=== PATIENT | male | born 1985 | race Caucasian/White ===

== ENCOUNTER 2023-12-26 18:08 | Emergency (ER) | payer MEDICARE, MEDICAID, SELFPAY ==
[2023-12-26 18:16] VITALS: BP 113/82; PULSE 86; RESP 19; TEMP 36.3; O2SAT 99
--- NOTE | 2023-12-26 18:18 | ED.WOUNDLAC ---
HPI - Wound/Laceration General Chief Complaint: Wound/Laceration Stated Complaint: L wrist laceration/box icer Time Seen by Provider: 12/26/23 18:15 Source: patient Mode of arrival: ambulatory Limitations: no limitations History of Present Illness HPI narrative: Patient is a 37-year-old male with a left wrist laceration after accident with a box icer. Patient was working on his car and slit his left wrist accidentally. EMS was called to the area but patient refused transport. Onset (ago): hour(s) (4) Extremity Location: Left: wrist ( Flexor surface) Place: outdoors Patient tetanus UTD: No Context: accidental Associated symptoms: none Related Data Allergies Allergy/AdvReac Type Severity Reaction Status Date / Time No Known Allergies Allergy Unverified 03/11/14 23:34 Review of Systems Review of Systems: All systems reviewed & are unremarkable except as noted in HPI and below Constitutional: Constitutional: Reports no additional constitutional complaints Eyes: Eyes: Reports no additional eye complaints ENT: Reports system reviewed and no additional complaints, except as documented Cardiovascular: Cardiovascular: Reports no additional cardiovascular complaints Respiratory: Respiratory: Reports no additional respiratory complaints Gastrointestinal: Gastrointestinal: Reports no additional gastrointestinal complaints Genitourinary: Genitourinary: Reports no additional male genitourinary complaints Musculoskeletal: Musculoskeletal: Reports no additional musculoskeletal complaints Integumentary/Breasts: Skin/Breast: Reports system reviewed and no additional complaints, except as docu Neurologic: Reports system reviewed and no additional complaints, except as documented Psychiatric: Psychiatric: Reports no additional psychiatric complaints Endocrine: Endocrine: Reports no additional endocrine complaints Hematologic/Lymphatic: Hematologic/Lymphatic: Reports no additional hematologic/lymphatic complaints Allergic/Immunologic: Allergic/Immunologic: Reports no additional allergic/immunologic complaints Exam Const: General: healthy appearing Nutritional Appearance: well nourished Orientation/consciousness: patient oriented x3 HENMT: Head: normal to inspection Ears: external ears normal Face/Nose/Sinus: Normal external nose present Eyes: Conjunctivae: conjunctivae normal Pupils: Equal, round and reactive pupils present EOM: EOMs intact bilaterally Neck: Neck: normal visual inspection Chest: Chest palpation & inspection: normal inspection of the chest Resp: Effort & Inspection: normal respiratory effort and not labored Auscultation: clear to auscultation bilaterally Cardio: Rate: regular rate Rhythm: regular rhythm Heart sounds: no murmurs GI: Inspection: non-distended GI Palp: Yes Soft to palpation and No Tenderness to palpation present (GI) Auscultation: normal bowel sounds Back/Spine/Pelvis: Back: no CVA tenderness Skin: General skin exam: normal color Rashes: no rashes Wounds: wound noted and wounds noted Other: Left wrist flexor surface has a linear 6 cm deep laceration with tendon noted intact below the laceration; minimal bleeding; patient able to move all digits and distally neurovascularly intact Neuro: General: patient oriented x3 Cranial nerves: Yes Nystagmus not present Speech: normal speech Extrem: General: normal to inspection Other: left hand is able to move without difficulty and moves all digits and wrist without difficulty; tendon was seen on open examination however it was intact without laceration Psych: Mental Status: mental status grossly normal Affect: normal affect Attitude: cooperative Course Vital Signs Vital signs: Vital Signs Temperature 36.3 C L 12/26/23 18:16 Pulse Rate 86 12/26/23 18:16 Respiratory Rate 19 12/26/23 18:16 Blood Pressure 113/82 12/26/23 18:16 Pulse Oximetry 99 12/26/23 18:16 Oxygen Delivery Room Air 12/01
[2023-12-26] MEDS: TETANUS,DIPHTHERIA,AC PERTUSSIS ADULT 0.5 ML (ADACEL) IM (18:41)
[2023-12-26] MEDS: LIDOCAINE HCL 1% LOCAL INJ 10 ML VIAL INFILTRATE (18:42)
[2023-12-26] MEDS: NEOMYCIN/POLYMYXIN/BACITRACIN OINTMENT PACKET 1 PACKET TOPICAL (19:29)
[2023-12-26 19:33] VITALS: BP 168/87; PULSE 86; RESP 20; TEMP 36.7; O2SAT 98
== END 2023-12-26 19:33 | disposition home or self-care (01) ==
PROVIDERS: Emergency Provider Emergency Medicine
DX: S61.512A Laceration without foreign body of left wrist, initial encounter (principal); W26.8XXA Contact with other sharp object(s), not elsewhere classified, initial encounter; Z23 Encounter for immunization
CPT/HCPCS: 12002; 90471; 90715; 99282

== ENCOUNTER 2024-01-02 16:25 | Emergency (ER) | payer MEDICARE, MEDICAID, SELFPAY ==
[2024-01-02 16:30] VITALS: BP 118/84; PULSE 78; RESP 18; TEMP 36.3; O2SAT 98
--- NOTE | 2024-01-02 16:38 | PC.NURSE ---
ER Provider at the bedside
--- NOTE | 2024-01-02 16:42 | ED.WOUNDLAC ---
HPI - Wound/Laceration General Chief Complaint: Wound/Laceration Stated Complaint: suture removal Time Seen by Provider: 01/02/24 16:41 Source: patient Mode of arrival: ambulatory Limitations: no limitations History of Present Illness HPI narrative: patient is a 38-year-old male with a left wrist laceration sutured by me a week ago. He is here for suture removal. No complications or problems. Onset (ago): day(s) (7) Location: other ( Left wrist; accident with Sharp blade 1 week ago) Extremity Location: Left: wrist ( flexor surface) Place: outdoors ( working on his car) Patient tetanus UTD: Yes Context: accidental Associated symptoms: none Treatments prior to arrival: other ( sutures and Dermabond) Related Data Home Medications Medication Instructions Recorded Confirmed divalproex 250 mg tablet,extended 250 mg PO DAILY 01/02/24 01/02/24 release 24 hr (Depakote ER) divalproex 500 mg tablet,extended 500 mg PO DAILY 01/02/24 01/02/24 release 24 hr (Depakote ER) gabapentin 300 mg capsule 300 mg PO DAILY 01/02/24 01/02/24 interferon beta-1a (albumin) 44 44 mcg subcut WEEKLY 01/02/24 01/02/24 mcg/0.5 mL subcutaneous pen injector (Rebif Rebidose) levetiracetam 500 mg tablet 500 mg PO DAILY 01/02/24 01/02/24 mirtazapine 15 mg tablet 15 mg PO DAILY 01/02/24 01/02/24 Allergies Allergy/AdvReac Type Severity Reaction Status Date / Time No Known Allergies Allergy Unverified 03/11/14 23:34 Review of Systems Review of Systems: All systems reviewed & are unremarkable except as noted in HPI and below Constitutional: Constitutional: Reports no additional constitutional complaints Eyes: Eyes: Reports no additional eye complaints ENT: Reports system reviewed and no additional complaints, except as documented Cardiovascular: Cardiovascular: Reports no additional cardiovascular complaints Respiratory: Respiratory: Reports no additional respiratory complaints Gastrointestinal: Gastrointestinal: Reports no additional gastrointestinal complaints Genitourinary: Genitourinary: Reports no additional male genitourinary complaints Musculoskeletal: Musculoskeletal: Reports no additional musculoskeletal complaints Integumentary/Breasts: Skin/Breast: Reports system reviewed and no additional complaints, except as docu Neurologic: Reports system reviewed and no additional complaints, except as documented Psychiatric: Psychiatric: Reports no additional psychiatric complaints Endocrine: Endocrine: Reports no additional endocrine complaints Hematologic/Lymphatic: Hematologic/Lymphatic: Reports no additional hematologic/lymphatic complaints Allergic/Immunologic: Allergic/Immunologic: Reports no additional allergic/immunologic complaints Exam Const: General: healthy appearing Nutritional Appearance: well nourished Orientation/consciousness: patient oriented x3 HENMT: Head: normal to inspection Ears: external ears normal Face/Nose/Sinus: Normal external nose present Eyes: Conjunctivae: conjunctivae normal Pupils: Equal, round and reactive pupils present EOM: EOMs intact bilaterally Neck: Neck: normal visual inspection Chest: Chest palpation & inspection: normal inspection of the chest Resp: Effort & Inspection: normal respiratory effort and not labored Auscultation: clear to auscultation bilaterally Cardio: Rate: regular rate Rhythm: regular rhythm Heart sounds: no murmurs GI: Inspection: non-distended GI Palp: Yes Soft to palpation and No Tenderness to palpation present (GI) Auscultation: normal bowel sounds Back/Spine/Pelvis: Back: no CVA tenderness Skin: General skin exam: normal color Rashes: no rashes Wounds: wound noted and wounds noted Other: left wrist flexor surface has an intact running suture with Dermabond on the distal tip; it has been 1 week and no complications seen or cellulitis or oozing or bleeding; it appears the underneath tissue was closed well and just some topical superficial
== END 2024-01-02 16:54 | disposition home or self-care (01) ==
PROVIDERS: Emergency Provider Emergency Medicine
DX: Z48.02 Encounter for removal of sutures (principal); S61.512D Laceration without foreign body of left wrist, subsequent encounter; W26.8XXD Contact with other sharp object(s), not elsewhere classified, subsequent encounter
CPT/HCPCS: 15853; 99281

== ENCOUNTER 2024-03-17 22:41 | Emergency (ER) | payer MEDICARE, MEDICAID, SELFPAY ==
[2024-03-17 22:45] VITALS: BP 134/94; PULSE 75; RESP 18; TEMP 36.6; O2SAT 100
--- NOTE | 2024-03-17 23:32 | ED.EXTPRO ---
HPI - Extremity Problem General Chief complaint: Extremity Problem,Nontraumatic Stated complaint: upper extremity problem Source: patient Mode of arrival: ambulatory Limitations: no limitations History of Present Illness HPI Narrative: 38-year-old male with a history of multiple sclerosis, seizure disorder presented to the ED on 12/26/2023 for a left wrist laceration which was repaired. Subsequently the patient had -- left wrist pain over the laceration site. -- No motor deficit of left hand. He has decreased sensation over the ulnar aspect. His multiple sclerosis has been stable. It was diagnosed 10 years ago with eye symptoms. Currently the patient does not have any motor deficits. His disease has been stable with interferon beta MD Complaint: extremity pain Onset (ago): day(s) Pain Consistency: constant Location: left and other ( wrist) Quality: aching Radiation: none Relieving factors: nothing Exacerbating factors: nothing Associated symptoms: denies other symptoms Related Data Home Medications Medication Instructions Recorded Confirmed divalproex 250 mg tablet,extended 250 mg PO DAILY 01/02/24 03/17/24 release 24 hr (Depakote ER) divalproex 500 mg tablet,extended 500 mg PO DAILY 01/02/24 03/17/24 release 24 hr (Depakote ER) gabapentin 300 mg capsule 300 mg PO TID 01/02/24 03/17/24 interferon beta-1a (albumin) 44 44 mcg subcut WEEKLY 01/02/24 03/17/24 mcg/0.5 mL subcutaneous pen injector (Rebif Rebidose) levetiracetam 500 mg tablet 500 mg PO DAILY 01/02/24 03/17/24 (Keppra) mirtazapine 15 mg tablet (Remeron) 15 mg PO DAILY 01/02/24 03/17/24 Allergies Allergy/AdvReac Type Severity Reaction Status Date / Time blue dye Allergy Unknown Verified 03/17/24 23:36 Review of Systems Review of Systems: All systems reviewed & are unremarkable except as noted in HPI and below Constitutional: Constitutional: Reports as per HPI and Reports no additional constitutional complaints Eyes: Eyes: Reports as per HPI and Reports no additional eye complaints ENT: Reports system reviewed and no additional complaints, except as documented and Reports as per HPI Cardiovascular: Cardiovascular: Reports as per HPI and Reports no additional cardiovascular complaints Respiratory: Respiratory: Reports as per HPI and Reports no additional respiratory complaints Gastrointestinal: Gastrointestinal: Reports as per HPI and Reports no additional gastrointestinal complaints Genitourinary: Genitourinary: Reports no additional male genitourinary complaints Musculoskeletal: Musculoskeletal: Reports no additional musculoskeletal complaints Comments: left wrist pain over the scar. Normal range of motion of the wrist. Decreased sensation over the ulnar aspect of the left hand. Integumentary/Breasts: Skin/Breast: Reports system reviewed and no additional complaints, except as docu Comments: Healed scar over the left Neurologic: Reports system reviewed and no additional complaints, except as documented and Reports as per HPI Comments: decreased sensation over medial 2 fingers of the left hand Psychiatric: Psychiatric: Reports no additional psychiatric complaints and Reports as per HPI Endocrine: Endocrine: Reports no additional endocrine complaints and Reports as per HPI Hematologic/Lymphatic: Hematologic/Lymphatic: Reports no additional hematologic/lymphatic complaints and Reports as per HPI Allergic/Immunologic: Allergic/Immunologic: Reports no additional allergic/immunologic complaints and Reports as per HPI PMFSH Past Medical History Medical History (Updated 03/17/24 @ 23:55 by Edgar Kent MD) Bipolar 1 disorder Multiple sclerosis Seizure disorder Social History Social History (Updated 03/17/24 @ 23:53 by Edgar Kent MD) Social History: uses marijuana Exam Narrative: blood pressure 134/94 Const: General: no acute distress Orientation/consciousness: vianca
[2024-03-18] MEDS: KETOROLAC 30 MG/ML VIAL (*BKC) IM (00:04)
== END 2024-03-18 00:25 | disposition home or self-care (01) ==
PROVIDERS: Emergency Provider Internal Medicine Critical Care Medicine
DX: S61.512D Laceration without foreign body of left wrist, subsequent encounter (principal); X58.XXXD Exposure to other specified factors, subsequent encounter
CPT/HCPCS: 29125; 96372; 99283; J1885

== ENCOUNTER 2024-09-29 22:42 | Emergency (ER) | payer MEDICARE, MEDICAID, SELFPAY ==
--- NOTE | ~2024-09-29 | CT_ITS ---
EXAMINATION: CT brain wo con DATE: 09/29/2024 23:58 INDICATION: seizure . TECHNIQUE: Computed tomography (CT) of the head was performed without intravenous contrast. The mA wa s adjusted according to patient size. Iterative reconstruction technique was employed. The dose-lengt h product was 756.67 mGy-cm. COMPARISON: 07/07/2014; MR brain 03/11/2014. FINDINGS: No acute intracranial hemorrhage or extra-axial fluid collection. No hydrocephalus, mass, or herniation. No acute ischemic infarct. Unremarkable dural venous sinus attenuation. No acute osseous abnormality. Moderate left maxillary mucosal thickening, minimal right maxillary mucosal thickening, right mastoid fluid, the remaining aerated spaces are clear. Mild chronic white matter change. IMPRESSION: No acute intracranial process. Reviewed, dictated and finalized at location K. ERED SUGAR SUPERVISOR
--- NOTE | ~2024-09-29 | XR_ITS ---
EXAM: XR hand RT 2V DATE: 09/29/2024 23:59 HISTORY: injury . COMPARISON: 11/24/2014. FINDINGS: Normal mineralization. Short fourth and fifth metacarpals. Comminuted fracture at the base of the fifth metacarpal with 35 degrees anterior angulation. Stable appearing minimal anterior angul ation of the distal aspect of the fifth metacarpal. Likely acute fracture of the distal fourth metaca rpal with 49 degrees anterior angulation. No lytic or blastic lesion. Joint spaces are maintained. No erosion or periosteal change. Soft tissues within normal limits. IMPRESSION: Comminuted, anteriorly angulated right fifth metacarpal base fracture. Anteriorly angulat ed fracture of the distal fourth metacarpal. Reviewed, dictated and finalized at location K. [facility] EDUCATOR IMPRESSION: Comminuted, anteriorly angulated right fifth metacarpal base fractu re. Anteriorly angulated fracture of the distal fourth metacarpal.
--- NOTE | 2024-09-29 22:45 | ECG_ITS ---
Test Date: 2024-09-29 22:53:44 Measurements Intervals [place] Rate: 62 P: 32 [place]: 138 QRS: 29 QRSD: 100 T: 55 QT: 412 QTc: 420 Interpretive Statements SINUS RHYTHM No previous ECG available for comparison Electronically Signed On 09-30-2024 11:39:18 ASSISTANT SECRETARY by Nhan Campos M.D.
[2024-09-29 22:47] VITALS: BP 157/72; PULSE 66; RESP 16; TEMP 36.3; O2SAT 100
[2024-09-29 22:54] VITALS: O2SAT 100
[2024-09-29 23:05] LABS: Basophils Percent Auto 0.3 % (0.2-1.2); Eosinophils Absolute Auto 0.1 K/mm3 (0-0.3); Hematocrit 40.8 % (42.0-52.0); Hemoglobin 13.9 g/dL (14.0-18.0); Immature Granulocyte Absolute 0.01 K/mm3 (0.00-0.031); Immature Granulocyte Percent A 0.1 % (0-0.5); Lymphocytes Absolute Auto 3.17 K/mm3 (0.9-3.2); Lymphocytes Percent Auto 45.7 % (18.3-44.2); Mean Corpuscular HGB Conc 34.1 g/dl (32-36); Mean Corpuscular Hemoglobin 31.4 pg (26-34); Mean Corpuscular Volume 92.3 fl (80-100); Monocytes Absolute Auto 0.8 K/mm3 (0.1-0.6); Monocytes Percent Auto 11.5 % (2.6-8.5); Neutrophils Absolute Auto 2.9 K/mm3 (1.3-6.7); Neutrophils Percent Auto 41.4 % (45.5-73.1); Platelet Count Result 217 k/mm3 (150-375); Red Blood Count 4.42 M/mm3 (4.6-6.20); Red Cell Distribution Width 12.5 % (11.5-14.5); White Blood Count 6.9 K/mm3 (4.5-10.0)
[2024-09-29 23:12] VITALS: BP 118/76; PULSE 61; RESP 20; O2SAT 100
[2024-09-29 23:16] VITALS: BP 119/72; PULSE 65; RESP 25; O2SAT 100
[2024-09-29 23:16] LABS: Alanine Aminotransferase 17 U/L (6-50); Albumin Level 4.4 g/dL (3.5-5.1); Alkaline Phosphatase 90 U/L (38-126); Anion Gap 13 mmol/L (4-12); Aspartate Amino Transferase 29 U/L (17-59); Blood Urea Nitrogen 14 mg/dL (9-20); Calcium 9.7 mg/dL (8.4-10.2); Carbon Dioxide 23 mmol/L (22-30); Chloride 105 mmol/L (98-107); Estimated CRCL calculation 155 ml/min; Estimated Glomerular Filt Rate > 60; Glucose 109 mg/dL (65-110); Potassium 3.5 mmol/L (3.4-5.0); Sodium 141 mmol/L (137-145)
[2024-09-29 23:17] LABS: Prothrombin Time 13.1 Seconds (11.1-14.7)
[2024-09-29 23:18] LABS: Add Urine Microscopic? NO; Appearance Urine Clear (Clear); Bilirubin Urine Negative (Negative); Blood Urine Negative (Negative); Color Urine Yellow (Yellow); Glucose Urine UA Negative (Negative); Ketones Urine Negative (Negative); Leukocyte Esterase Ur Negative LEU/UL (Negative); Nitrate Urine Negative (Negative); Protein Urine Negative (Negative); Specific Grav Ur 1.005 (1.001-1.035)
[2024-09-29 23:18] LABS: Partial Thromboplastin Time 31.6 Seconds (22.3-36.8)
--- NOTE | 2024-09-29 23:22 | ED_ITS ---
HPI - Altered Mental Status General Chief Complaint: Altered Mental Status Stated Complaint: seizure Time Seen by Provider: 09/29/24 23:11 Source: patient and family Mode of arrival: ambulatory Limitations: no limitations History of Present Illness HPI narrative: This is a 38-year-old male who presents to the ED for chief complaint of possible seizure-like activity occurring just prior to arrival. Brother states patient has history of epilepsy and takes multiple medications for this. Reports that he received a call today from the patient is and it seemed like patient was yelling and having a seizure. He then went over to the house states that the patient seemed to be coming out of the seizure when he got there. States that he had been responding on the phone. His brother believes that the patient is currently postictal. He feels that he is very disoriented as the patient believes his mother who has at home currently. Father and brother a bedside and do not feel the patient has been ill lately. They have not seen a seizure like this before. They are estimating seizure time of 5-10 minutes. Patient is able to tell me that he has pain to his wrist. He denies any other drug use besides marijuana use. States that he has been taking his medications as prescribed, however history is quite limited due to postictal state Related Data Home Medications ?Medication ?Instructions ?Recorded ?Confirmed ?Last Taken ?Type divalproex 250 mg tablet,extended 250 mg PO DAILY 01/02/24 03/17/24 Unknown History release 24 hr (Depakote ER) divalproex 500 mg tablet,extended 500 mg PO DAILY 01/02/24 03/17/24 Unknown History release 24 hr (Depakote ER) gabapentin 300 mg capsule 300 mg PO TID 01/02/24 03/17/24 Unknown History interferon beta-1a (albumin) 44 44 mcg subcut WEEKLY 01/02/24 03/17/24 Unknown History mcg/0.5 mL subcutaneous pen injector (Rebsurendra [place]ose) levetiracetam 500 mg tablet 500 mg PO DAILY 01/02/24 03/17/24 Unknown History (Keppra) mirtazapine 15 mg tablet (Remeron) 15 mg PO DAILY 01/02/24 03/17/24 Unknown History Allergies Allergy/AdvReac Type Severity Reaction Status Date / Time blue dye Allergy Unknown Verified 09/29/24 22:44 Review of Systems 2 Review of Systems: All systems as dictated in [facility] Past Medical History Medical History (Updated 09/30/24 @ 01:00 by Enrique Tam PA-C) Bipolar 1 disorder Seizure disorder Multiple sclerosis Social History Social History (Updated 03/17/24 @ 23:53 by Edgar Kent MD) Social History: uses marijuana Exam 2 Narrative: GENERAL: Appears fatigued, postictal. HEAD: Normocephalic, atraumatic. EYES: PERRLA and EOMI. ENT: Nares clear, no rhinorrhea or epistaxis. Mucous membranes moist. Oropharynx without tonsillar hypertrophy exudate or other lesions. NECK: Supple. No adenopathy or masses. CHEST: No respiratory distress. Clear to auscultation. No wheezes rales or rhonchi HEART: Regular rate and rhythm. No murmur heard. Normal peripheral pulses. ABDOMEN: Soft, nontender, nondistended, normal active bowel sounds. MSK: Normal range of motion. No edema. SKIN: Warm, dry, no rash. NEURO: Alert and oriented to self only. He is not alert to time or place. News Producer strength equal bilaterally. No nuchal rigidity. Moves all 4 extremities spontaneously PSYCH: Normal mood and affect. Course Reevaluation(s) Reevaluation #1: Patient is now fully alert and oriented. He is sitting up in the bed. He is conversational and coherent. Fully oriented. Date: 09/30/24 Time: 00:57 Vital Signs Vital signs: Vital Signs Temperature 97.3 F L 09/29/24 22:47 Pulse Rate 66 09/29/24 22:47 Respiratory Rate 16 09/29/24 22:47 Blood Pressure 157/72 H 09/29/24 22:47 Pulse Oximetry 100 09/29/24 22:47 Oxygen Delivery Room Air 09/29/24 22:47 Temperature 97.3 F L 09/29/24 22:47 Pulse Rate 61 09/30/24 00:46 Respiratory Rate 15 09/30/24 00:46 Blood Pressure 101/67 09/30/24 00:46 Pulse Oximetry 95 09/30/24 00:46 Oxygen Delivery Room Air 09/29/24 22:54 MDM - Altered Mental Status MDM Narrative Medical decision making narrative: This is a 38-year-old male who presents to the ED for chief complaint of seizure activity prior to arrival. Vitals are normal. Exam shows patient is likely postictal. Lab work is unremarkable overall. CT brain is negative for acute findings. Urinalysis negative. Urine drug screen positive only for cannabis. Right hand x-ray: IMPRESSION: Comminuted, anteriorly angulated right fifth metacarpal base fracture. Anteriorly angulated fracture of the distal fourth metacarpal. Presentation consistent with breakthrough seizure. He also has a boxer's fracture of the right hand. He was given loading dose of Keppra here. After short observation, patient is fully back to his normal baseline. Family is bedside and confirms that he is acting normally. Patient was placed in ulnar gutter splint and given short course for [place] for pain control for the fracture. He sugars that he has all of his needed medications at home. He states that while he was admitted to psychiatry unit at [facility] recently they did not have his seizure medication regimen correct. He assures that he will follow-up with his neurologist and his psychiatrist as scheduled. Patient will be discharged in stable condition. Supportive measures discussed and return precautions given. Patient is understanding and agreeable with plan for discharge with PCP follow-up. Lab Data 09/29/24 22:54 09/29/24 22:54 Labs: Lab Results 09/29/24 09/29/24 Range/Units 22:54 23:10 WBC 6.9 (4.5-10.0) K/mm3 RBC 4.42 L (4.6-6.20) M/mm3 Hgb 13.9 L (14.0-18.0) g/dL Hct 40.8 L (42.0-52.0) % MCV 92.3 (80-100) fl MCH 31.4 (26-34) pg MCHC 34.1 (32-36) g/dl RDW 12.5 (11.5-14.5) % Plt Count 217 (150-375) k/mm3 MPV 12.0 H (7.4-10.4) fl Immature Gran % (Auto) 0.1 (0-0.5) % Neut % (Auto) 41.4 L (45.5-73.1) % Lymph % (Auto) 45.7 H (18.3-44.2) % Ray % (Auto) 11.5 H (2.6-8.5) % Eos % (Auto) 1.0 (0-4.4) % Baso % (Auto) 0.3 (0.2-1.2) % Lymph # (Auto) 3.17 (0.9-3.2) K/mm3 Ray # (Auto) 0.8 H (0.1-0.6) K/mm3 Eos # (Auto) 0.1 (0-0.3) K/mm3 Baso # (Auto) 0.0 (0.0-0.1) K/mm3 Abs Immat Gran (auto) 0.01 (0.00-0.031) K/mm3 Absolute Neuts (auto) 2.9 (1.3-6.7) K/mm3 Absolute Nucleated RBC 0.000 (0.0-0.012) K/mm3 Nucleated RBC % 0.0 (0.0-0.2) % PT 13.1 (11.1-14.7) Seconds INR 1.0 APTT 31.6 (22.3-36.8) Seconds Sodium 141 (137-145) mmol/L Potassium 3.5 (3.4-5.0) mmol/L Chloride 105 (98-107) mmol/L Carbon Dioxide 23 (22-30) mmol/L Anion Gap 13 H (4-12) mmol/L BUN 14 (9-20) mg/dL Creatinine 0.78 (0.7-1.3) mg/dL Estim Creat Clear Calc 155 ml/min Estimated GFR > 60 (59 - ) Glucose 109 (65-110) mg/dL Calcium 9.7 (8.4-10.2) mg/dL Total Bilirubin 1.0 (0.2-1.3) mg/dL AST 29 (17-59) U/L ALT 17 (6-50) U/L Alkaline Phosphatase 90 (38-126) U/L Total Protein 8.0 (6.3-8.2) g/dL Albumin 4.4 (3.5-5.1) g/dL Urine Color Yellow (Yellow) Urine Appearance Clear (Clear) Urine pH 7.0 (5.0-9.0) Ur Specific [place] 1.005 (1.001-1.035) Urine Protein Negative (Negative) mg/dL Urine Glucose (UA) Negative (Negative) mg/dL Urine Ketones Negative (Negative) mg/dL Ur Blood (Man) Negative (Negative) Urine Nitrate Negative (Negative) Urine Bilirubin Negative (Negative) Urine Urobilinogen 1.0 (<2.0) mg/dL Leukocyte Esterase Rfl Negative (Negative) ROMAN/UL Urine Opiates Screen Negative (Negative) Urine Methadone Screen Negative (Negative) Ur Barbiturates Screen Negative (Negative) Ur Phencyclidine Scrn Negative (Negative) Ur Amphetamine Screen Negative (Negative) U Benzodiazepines Scrn Negative (Negative) Urine Cocaine Screen Negative (Negative) U Cannabinoids Screen Positive A (Negative) Discharge Plan Discharge Clinical Impression: Seizure-like activity Patient Disposition: Home, Self-Care Condition: Stable Instructions: Antibiotic Form Additional Instructions: Your exam and imaging today are reassuring, however this was probably a breakthrough seizure. Please make sure that you are taking her medications as prescribed at home and follow-up closely with neurologist and psychiatrist. Use short course of [place] as needed for pain control. Follow-up with hand surgeon for the hand fractures. If you have any new or worsening symptoms please return to the ER for further evaluation. Patient Language: Turkmen Prescriptions: New hydrocodone-acetaminophen 5-325 mg tablet 1 tablet PO Q8H PRN (Reason: pain) Qty: 12 0RF No Action levetiracetam [Keppra] 500 mg tablet 500 mg PO DAILY divalproex [Depakote ER] 500 mg tablet extended release 24 hr 500 mg PO DAILY gabapentin 300 mg capsule 300 mg PO TID mirtazapine [Remeron] 15 mg tablet 15 mg PO DAILY divalproex [Depakote ER] 250 mg tablet extended release 24 hr 250 mg PO DAILY Rebif Rebidose 44 mcg/0.5 mL pen injector 44 mcg SUBCUT WEEKLY Follow-up/Referrals: Gladys Ortiz MD [Physician] - UNKNOWN,DOCTOR [Primary Care Provider] - Time of Disposition: 01:00
[2024-09-29 23:31] VITALS: BP 120/71; PULSE 64; RESP 13; O2SAT 97
--- OUTSIDE RECORDS SUMMARY | 2024-09-29 23:34 | XMS_ITS | Clinical Summary ---
Author Organization [facility] Address [address] [place] [address]. 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 Gender Identity Not on file Sexual Orientation Not on file Plan of Treatment Health Maintenance Due Date Last Done Comments Annual Physical 12/27/1987 Hepatitis C 2002 DTaP, Tdap and Td Vaccines ( 1 - Tdap) 12/27/2003 Hepatitis B Vaccines (1 of 3 - 19+ 3-dose series) 12/27/2003 COVID-19 Vaccine (2023-2 5 season) 2024 Influenza Adult (#1) 2024 HPV Vaccines Aged Out No longer eligi ble based on patient's age to complete this topic Meningococcal B Vaccine Aged Out No l onger eligible based on patient's age to complete this topic Meningococcal Vaccine Aged Out No chloe biju eligible based on patient's age to complete this topic Pneumococcal Vaccine: Pediat rics (0 to 5 Years) and At-Risk Patients (6 to 64 Years) Aged Out No longer eligible b ased on patient's age to complete this topic RSV Immunizations Under 20 Months Aged Out No longer eligible based on patient's age to complete this topic
--- OUTSIDE RECORDS SUMMARY | 2024-09-29 23:34 | XMS_ITS | Referral Summary ---
Author Organization [facility] Address [address] [place] [address] Care Team Providers Care Supervisor Taping Name Role Phone Unavailable Primary Care Provider Unavailabl e Source Comments [facility],non-owned Affiliates and Associated Physician Practices is amultiple site organization consisting of ambulatory clinics and hospital sitesin [place], [place], [place] and [place]. This disclosure is being madepursuant to the Care Everywhere program and may not contain all information available regarding this patient. Last updated 18.[facility] [email or web address] Allergies No known active allergies Medications * Be aware that medications may not be up to date on this document. Alwaysverify current medications with the patient. Medication Sig Dispensed Refills Start Date End Date Status levETIRAcetam (KEPPRA) 1000 MG tabletIndications: Bipolar Mood Disorder,Tonic Clonic Epilepsy Take 1,000 mg by mouth at bedtime Reasons: Manic-Depression, Tonic-Clonic Seizures Active gabapentin (NEURONTIN) 600 MG tabletIndications: Multiple Sclerosis,Neurogen ic Pain (Inactive) Take 600 mg by mouth 3 times daily Reasons: Multiple Sclerosis, Neurogenic Pain Active REBIF REBIDOSE 44 MCG/0.5ML auto-injectorIndic ations:Multiple Sclerosis,Due at 3 pm daily Inject 44 mcg subcutaneously every Friday, Friday & Friday Reasons: Multiple Sclerosis, Due at 3 pm daily 10/02/2016 Active divalproex ER 24hr (DEPAKOTE ER) 500 MG tabletIndications: Manic Phase of Bipolar Mood Disorder Take 2 Tabs by mouth at bedtime Reasons: Manic Phase of Manic-Depression 60 Tab 10/04/2016 Active divalproex ER 24hr (DEPAKOTE ER) 500 MG tabletIndications: Manic Phase of Bipolar Mood Disorder Take 1 Tab by mouth once daily Reasons: Manic Phase of Manic-Depression 30 Tab 10/05/2016 Active mirtazapine (REMERON) 15 MG tabletIndications: Insomnia,Major Depressive Disorder Take 1 Tab by mouth at bedtime Reasons: Trouble Sleeping, Major Depressive Disorder 30 Tab 1 10/04/2016 Active nicotine (NICODERM CQ) 21 MG/24HR patchIndications:N icotine Dependence Apply 1 Patch to skin once daily Remove old patch before applying new patch. Reasons: Nicotine Addiction 10 Patch 1 10/04/2016 Active Active Problems No known active problems Social History Tobacco Use Types Packs/Day Years Used Date Smoking Tobacco: Every Day Cigarettes 1 32 Started: 09/30/1992 Smokeless Tobacco: Never Tobacco Cessation:Ready to Q uit: No; Counseling Given: Yes Alcohol Use Standard Drinks/Week Comments Yes 25 (1 standard drink = 0.6 oz pure alcohol) binge drinking the past 2 weeks. Sex and Gender Information Value Date Recorded Sex Assigned at Not on file Gender Identity Not on file Sexual Orientation Not on file Last Filed Vital Signs Vital Sign Reading Time Taken Comments Blood Pressure 118/70 12/15/2016 7:30 AM CDT Pulse 84 12/15/2016 7:30 AM CDT Temperature 36.6 ??C (97.9 ??F) 12/15/2016 7:30 AM CD T Respiratory Rate 18 12/15/2016 7:30 AM CDT Oxygen Saturation 98% 12/15/2016 7:30 AM CDT Inhaled Oxygen Concentration - - Weight 103.1 kg (227 lb 4.7 oz) 10/01/2016 1:00 PM ORCHARD SPRAYER Height 190.5 cm (6' 3 ) 12/14/2016 5:00 PM CDT Body Mass Index 30.12 10/01/2016 1:00 PM ORCHARD SPRAYER Functional Status Functional Status Response Date of Assess ment Is person deaf or have serious hearing difficult y? No 10/04/2016 Is person blind or have serious difficulty seein g? No 10/04/2016 Does person have serious dif ficulty walking/climbing stairs? No 10/04/2016 Does person have difficulty dressing/bathing? No 10/04/2016 Does person have difficulty doing errands alone? No 10/04/2016 Cognitive Status Response Date of Assessm ent Does person have difficulty concentrating/remembering/making decisions? No 10/04/2016 Plan of Treatment Not on file Advance Directives * Full Code (Latest Code Status on File) Date Activated Date Inactivated Comments 10/01/2016 12:07 AM 10/04/2016 12:47 PM
--- OUTSIDE RECORDS SUMMARY | 2024-09-29 23:34 | XMS_ITS | Clinical Summary ---
Author Organization [facility] Address [address] [place] [address] Care Team Providers Care Certified Cytotechnologist Name Role Phone Unknown, Notinfile Primary Care Provider Unavail able Allergies Active Allergy Reactions Criticality Noted Date Comments Blue Dye Other (See comments) Low Patient states his body starts jerking Medications cholecalcifer ol (VITAMIN D3) 2,000 unit capsule take 1 by Oral route every day 0 0 014 Active mirtazapine (REMERON) 15 mg tablet Take 1 tablet (15 mg total) by mouth nightly [address] (DEPAKOTE) 500 mg EC tablet Take 1 tablet (500 mg total) by mouth 2 (two) times a day Active ciprofloxacin (CILOXAN) 0.3 % ophthalmic solution 5 drops into Right EAR, NOT EYE, twice daily for 5 days 023 Active levETIRAcetam (KEPPRA) 500 mg tablet TAKE 1 TABLET BY MOUTH THREE TIMES DAILY 180 tablet 3 024 Active gabapentin (NEURONTIN) 300 mg capsuleIndica tions:Chronic bilateral low back pain without sciatica Take 2 capsules (600 mg total) by mouth 3 (three) times a day 180 capsule 3 025 Active Rebif Rebidose 44 mcg/0.5 mL injection INJECT 44 MCG SUBCUTANEOUSLY 3 TIMES PER WEEK 6 mL 11 025 Active gabapentin (NEURONTIN) 300 mg capsule TAKE 2 CAPSULES BY MOUTH 3 TIMES A DAY 180 capsule 3 024 2024 Discontinued(R eorder) Rebif Rebidose 44 mcg/0.5 mL injection INJECT 44 MCG SUBCUTANEOUSLY 3 TIMES PER WEEK 45 mL 1 024 2024 Discontinued Active Problems Problem Noted Date Diagnosed Date Dysfunction of right eustachian tube 08/29/2023 Assessment & Plan (04/07/2024 8:53 AM CDT): Avoid ear cleaning techniques Avoid water to ears Follow up in 9 months for Right ear tube check Assessment & Plan (08/29/2023 1:36 PM CHALK MOLDING MACHINE OPERATOR): Avoid ear cleaning techniques Avoid water to ears Follow up in 9 months for right ear tube check, earlier with ear drainage Referred otalgia of right ear 06/12/2023 Assessment & Plan (06/12/2023 2:02 PM CDT): CT Neck - call with results Mastoiditis of right side 04/25/2023 Assessment & Plan (04/25/2023 2:39 PM CDT): Personal interpretation of MRI Brain: right near complete opacification of mastoid region with fluid, fluid in the middle ear space and fluid and inflammation of the nasopharynx, right worse than left Chronic otitis media with effusion, right 2022 Assessment & Plan (04/23/2023 1:54 PM CDT): Augmentin twice daily with a meal for 21 days Flonase 2 sprays into each nostril while looking down over the sink, do not sniff in or blow nose after use for at least 30 minutes daily for one month Hearing test [facility] Consider right myringotomy with T-tube placement if no improvement in right middle ear effusion Acute pain of right knee 06/15/2018 Epilepsy undetermined as to focal or generalized 12/30/2016 Overview (01/24/2017): Epilepsy undetermined whether focal or generalized Low back pain 02/26/2016 Overview (12/05/2016): Low back pain Relapsing remitting multiple sclerosis 6 Overview (12/05/2016): Relapsing remitting multiple sclerosis Vitamin D deficiency 10/13/2014 Overview (12/05/2016): Vitamin D deficiency Chronic bilateral low back pain without sciatica 10/13/2014 Overview (12/05/2016): Backache Migraine without aura and wi thout status migrainosus, not intractable 10/13/2014 Overview (12/05/2016): Migraine Resolved Problems Problem Noted Date Diagnosed Date Resolved Date Acute pain of right knee 12/28/2018 Multiple sclerosis 10/13/2014 Overview (12/05/2016): Multiple sclerosis Encounters Date Type Department Care Team Description 09/24/2024 6:46 PM CHALK MOLDING MACHINE OPERATOR - 09/24/2024 7:59 PM CHALK MOLDING MACHINE OPERATOR Emergency [facility] Emergency Department [address] [place] [address] Left wrist pain (Primary Dx) Discharge Disposition: Discharge to home or self care 08/16/2024 8:30 AM CHALK MOLDING MACHINE OPERATOR Office Visit [facility] [address] [id number] Graham Villaseñor MD Relapsing remitting multiple sclerosis (HCC) (Primary Dx); 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); Chronic bilateral low back pain without sciatica; Vitamin D deficiency from Last 3 Months Surgical History Surgery Date Site/Laterality Comments LUMBAR PUNCTURE WO INJECTION , DIAGNOSTIC 04/07/2014 N/A CYST REMOVAL removed from back of neck Medical History Medical History Date Comments Bipolar affective disorder (HCC) Bipolar affective disorder; Comments: CRS 04/04/2014 - Attention deficit disorder ADHD; Comments: CRS 04/04/2014 - Seizure disorder (CMS/HCC) (HCC) Seizure disorder Lazy eye Lazy eye; 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3 years old Depression MS (multiple sclerosis) ([facility]) Anxiety Family History Medical History Relation Name Comments Headache Father Headaches; Seizures Father Seizure disorde r; Headache Other Headaches; Cancer Neg Hx Diabetes Neg Hx Hypertension Neg Hx Relation Name Status Comments Father Other Social History Tobacco Use Types Packs/Day Years Used Date Smoking Tobacco: Former Smokeless Tobacco: Never Tobacco Cessation:Counseling Given: Not Answered Comments:has started Vaping 2 months ago Alcohol Use Standard Drinks/Week Comments Yes 0 (1 standard drink = 0.6 oz pur e alcohol) Personal Safety Answer Date Recorded Have you ever been in or are you currently in a harmful physical or emotional relationship or is someone making you feel afraid or unsafe? Denies 09/24/2024 Sex and Gender Information Value Date Recorded Sex Assigned at Not on file Legal Sex Male 7:32 PM CHALK MOLDING MACHINE OPERATOR Gender Identity Not on file Sexual Orientation Not on file Obstetrics History Last Filed Vital Signs Vital Sign Reading Time Taken Comments Blood Pressure 145/96 09/24/2024 6:44 PM CHALK MOLDING MACHINE OPERATOR Pulse 93 09/24/2024 6:44 PM CHALK MOLDING MACHINE OPERATOR Temperature 36.9 ??C (98.5 ??F) 09/24/2024 6:44 PM CS T Respiratory Rate 18 09/24/2024 6:44 PM CHALK MOLDING MACHINE OPERATOR Oxygen Saturation 97% 09/24/2024 6:44 PM CHALK MOLDING MACHINE OPERATOR Inhaled Oxygen Concentration - - Weight 102.5 kg (226 lb) 09/24/2024 6:44 PM CHALK MOLDING MACHINE OPERATOR Height 190.5 cm (6' 3 ) 09/24/2024 6:44 PM CHALK MOLDING MACHINE OPERATOR Body Mass Index 28.25 09/24/2024 6:44 PM CHALK MOLDING MACHINE OPERATOR Plan of Treatment Health Maintenance Due Date Last Done Comments Depression Screening 1984 Hepatitis C Screening 1984 DTaP/Tdap/Td Vaccine (1 - Tdap) 12/27/1995 Varicella Vaccines (1 of 2 - 13+ 2-dose series) 1997 Hepatitis B Screening 2002 Regular Well Visit/Exam 18-64 2002 Influenza Vaccine (#1) 2024 HPV Vaccines Aged Out No longer eligi ble based on patient's age to complete this topic Pneumococcal vaccine <65 Aged Out No longer eligible based on patient's age to complete this topic Medical Devices Implanted Type Area Language Teacher Device Identifier Shelf Expiration Date Model / Serial / Lot [employer] 1.32mm 4.8mm Modify Ear T Tube Ventilation Ultrasil Sterile Blue [id number] - [id number] Implanted:Qty: 1 on 08/19/2023 by Yenny Marquez DO at [facility] Right: Ear [employer] 01/08/2033 [id number] / / [id number] Insurance [facility] MEDICARE MEDICARE IDIN Care Teams Certified Cytotechnologist Relationship Specialty Start Date End Date Unknown, Notinfile PCP - General 08/18/17
--- OUTSIDE RECORDS SUMMARY | 2024-09-29 23:34 | XMS_ITS | CONTINUITY OF CARE DOCUMENT ---
Author Name trina mena Address Unknown Organization [facility] Address [address] [place] [address] Phone [phone] Care Team Providers Care Farm Labor Contractor Name Role Phone Dave JONES, Albino Unavailable SARWAT JONES, MIRZA Unavailable [phone] MAXINE JONES, CAMERON Unavailable [phone] INSURANCE PROVIDERS Payer name Policy type / Coverage type [place] red libertarian [place] [employer] FAMILY [employer] Medicaid 1 [id number] [place] MED[place] Medicare [id number]
--- OUTSIDE RECORDS SUMMARY | 2024-09-29 23:34 | XMS_ITS | Patient Health Summary ---
Author Organization [facility] [employer] Address [address] [place] [address] Care Team Providers Care Tow Bar Driver Name Role Phone Unavailable Primary Care Provider Unavailabl e Note from [facility],non-owned Affiliates and Associated Physician Practices is amultiple site organization consisting of ambulatory clinics and hospital sitesin [place], [place], [place] and [place]. This disclosure is being madepursuant to the Care Everywhere program and may not contain all information available regarding this patient. Last updated 18.[facility] [employer] Allergies No known active allergies Medications * Be aware that medications may not be up to date on this document. Alwaysverify current medications with the patient. * levETIRAcetam (KEPPRA) 1000 MG tablet Take 1,000 mg by mouth at bedtime Reasons: Manic-Depression, Tonic-Clonic Seizures * gabapentin (NEURONTIN) 600 MG tablet Take 600 mg by mouth 3 times daily Reasons: Multiple Sclerosis, Neurogenic Pain * REBIF REBIDOSE 44 MCG/0.5ML auto-injector(Started 10/02/2016) Inject 44 mcg subcutaneously every Friday, Friday & Friday Reasons: Multiple Sclerosis, Due at 3 pm daily * divalproex ER 24hr (DEPAKOTE ER) 500 MG tablet(Started 10/04/2016) Take 2 Tabs by mouth at bedtime Reasons: Manic Phase of Manic-Depression * divalproex ER 24hr (DEPAKOTE ER) 500 MG tablet(Started 10/05/2016) Take 1 Tab by mouth once daily Reasons: Manic Phase of Manic-Depression * mirtazapine (REMERON) 15 MG tablet(Started 10/04/2016) Take 1 Tab by mouth at bedtime Reasons: Trouble Sleeping, Major Depressive Disorder 1 refill remaining * nicotine (NICODERM CQ) 21 MG/24HR patch(Started 10/04/2016) Apply 1 Patch to skin once daily Remove old patch before applying new patch. Reasons: Nicotine Addiction 1 refill remaining Active Problems No known active problems Social [...] (227 lb 4.7 oz) 10/01/2016 1:00 PM SCHOOL INSPECTOR Height 190.5 cm (6' 3 ) 12/14/2016 5:00 PM CDT Body Mass Index 30.12 10/01/2016 1:00 PM SCHOOL INSPECTOR Procedures * HEMOGLOBIN A1C(Performed 12/15/2016) * TSH(Performed 12/15/2016) * LIPID PROFILE(Performed 12/15/2016) * VALPROIC ACID LEVEL(Performed 10/02/2016) * XR HAND RIGHT 3VW OR MORE(Performed 10/02/2016) Performed for Episode of recurrent major depressive disorder, unspecified depression episode severity (HCC) * MRI BRAIN WWO CONTRAST(Performed 12/23/2014) * CREATININE BLOOD - POCT (IP) [facility](Performed 12/23/2014) * XR HAND RIGHT 3VW OR MORE(Performed 12/20/2014) * VITAMIN D 1,25 DIHYDROXY(Performed 12/20/2014) * VITAMIN D 25-HYDROXY(Performed 12/20/2014) * VALPROIC ACID LEVEL(Performed 12/20/2014) * XR CHEST 2VW INSPIR EXPIRATION(Performed 12/17/2014) Results * HEMOGLOBIN A1C (12/15/2016 6:22 AM CDT) Hemoglobin A1c 5.3 4.4 - 6.3 % [facility] Estimated Average Glucose 105 mg/dL [facility] Comment: HbA1c Interpretation: Treatment target values recommended by ADA and other clinical organizations should be used to evaluate metabolic control in patients. Treatment Target Values: Normal : < 5.7% Pre-diabetes: 5.7-6.4% Diabetes: Equal to or greater than 6.5% Reference: [place] [employer] Standards of Care in Diabetes -2014 In patients 70 years and older consider HbA1c target range of 7.0-7.5% Reference: ??Diabetes Mellitus in Older People: Position Statement on behalf of the International Association of Gerontology and Geriatrics (IAGG), the Diabetes Working Republican for Older People (EDWPOP), and the International Task Force of Experts in Diabetes. ??All Smith, et al. J [place] Association. 2012 Test results diagnostic of diabetes should be repeated for confirmation. The Tosoh G8 assay for the measurement of HbA1c is a National Glycohemoglobin Standardization Program (NGSP)certified method. Results for patients with HbE disease should be interpreted with caution as this hemoglobinopathy has been shown to interfere with the Tosoh G8 assay. Blood specimen (specimen) BLOOD SPECIMEN / Unknown 12/15/2016 6:22 AM CDT 12/15/2016 6:48 AM CDT Issa Chaudhry MD LAB - CHEMISTRY O RDERABLES [address] [phone] * TSH (12/15/2016 6:22 AM CDT) TSH 1.458 0.350 - 4.940 uIU/mL [facility] Blood specimen (specimen) BLOOD SPECIMEN / Unknown 12/15/2016 6:22 AM CDT 12/15/2016 6:48 AM CDT Issa Chaudhry MD LAB - CHEMISTRY O [facility] Performing Organization Address [facility]/ZIP Co de Phone Number [facility] [address] [place] [address] * (ABNORMAL) LIPID PROFILE (12/15/2016 6:22 AM CDT) Cholesterol Total 135 <200 mg/dL [facility] HDL 32(L) >40 mg/dL [facility] Comment: ATP III Classification of HDL Cholesterol: ? <40 mg/dL: ??Considered a major risk factor. ? >60 mg/dL: ??Considered a negative risk factor. ? LDL Calculated 72 <100 mg/dL [facility] Comment: ATP III Classification of LDL Cholesterol: ?<100 mg/dL: ??Optimal ? 100 - 129 mg/dL: ??Near Optimal/Above Optimal ? 130 - 159 mg/dL: ??Borderline High ? 160 - 189 mg/dL: ??High ?>190 mg/dL: ??Very High ? Triglycerides 153(H) <150 mg/dL [facility] Comment: ATP III Classification of Triglycerides: ?<150 mg/dL: ??Normal ? 150 - 199 mg/dL: ??Borderline High ? 200 - 400 mg/dL: ??High ?>500 mg/dL: ??Very High Blood specimen (specimen) BLOOD SPECIMEN / Unknown 12/15/2016 6:22 AM CDT 12/15/2016 6:48 AM CDT Issa Chaudhry MD LAB - CHEMISTRY O [facility] Performing Organization Address [facility]/ZIP Co de Phone Number [facility] [address] [place] [address], [facility] [place] [phone] * VALPROIC ACID LEVEL (10/02/2016 5:53 AM SCHOOL INSPECTOR) Only the most recent of2 resultswithin the time period is included. Valproic Acid 80.09 50 - 100 ug/mL 10/02/2016 6:23 AM SCHOOL INSPECTOR [facility] Blood BLOOD SPECIMEN / Unknown Lab Venipuncture / Unknown 10/02/2016 5:53 AM SCHOOL INSPECTOR 10/02/2016 5:56 AM SCHOOL INSPECTOR Suzanne Steele MD LAB - CHEMISTRY [facility] [address] [place], [place] [id number] [place] [address] * XR HAND 3+ VW RIGHT [id number] (10/02/2016 3:07 AM SCHOOL INSPECTOR) Only the most recent of2 resultswithin the time period is included. Anatomical Region Laterality Modality Wrist / Hand Radiographic Lizet ging 10/02/2016 6:43 AM SCHOOL INSPECTOR Impressions 10/02/2016 12:36 PM SCHOOL INSPECTOR Fracture of the distal fourth metacarpal with palmar angulation of the metacarpal head. This does not appear radiographically acute on these images but correlation with the patient's history and site of pain recommended. Right hand otherwise negative. Concur with [facility] report. Report faxed to the Emergency Department at 7:49 a.m. on 10/02/2106. Narrative 10/02/2016 12:36 PM SCHOOL INSPECTOR RIGHT HAND, (THREE VIEWS): 10/02/2016 INDICATION: Trauma and pain. Procedure Note Nirmal Fernandez MD - 10/02/2016 RIGHT HAND, (THREE VIEWS): 10/02/2016 INDICATION: Trauma and pain. IMPRESSION Fracture of the distal fourth metacarpal with palmar angulation of the metacarpal head. This does not appear radiographically acute on these images but correlation with the patient's history and site of pain recommended. Right hand otherwise negative. Concur with [facility] report. Report faxed to the Emergency Department at 7:49 a.m. on 10/02/2106. Suzanne Steele MD DIAGNOSTIC IMAGING O RDERABLES * MRI BRAIN WWO CONTRAST (12/23/2014 8:33 AM CDT) Anatomical Region Laterality Modality Head Other Impressions 12/23/2014 10:06 AM CDT IMPRESSION: 1. Up to 20 supratentorial and 2 infratentorial FLAIR hyperintense lesions as described above, consistent with patient known diagnosis of multiple sclerosis. No diffusion restriction or enhancement to suggest active demyelination. This report was electronically signed by DANA GIMENEZ M.D. ??on 12/23/2014 10:06 AM . Narrative 12/23/2014 10:06 AM CDT EXAMINATION: Brain MRI without and with contrast. HISTORY: Multiple sclerosis. TECHNIQUE: MRI imaging of the brain and brainstem was performed without and with 10 ML Gadavist intravenous contrast according to a standard protocol. COMPARISON: None available FINDINGS: There are approximately 20 supratentorial FLAIR hyperintense lesions in the periventricular and subcortical white matter and along the undersurface of the corpus callosum, as well as 2 infratentorial lesions in the left middle cerebellar peduncle and the right cerebellar hemisphere, consistent with patient's history of multiple sclerosis. A few lesions demonstrate T1 hypointensity, indicating myelin vacuolization. There is no diffusion restriction or enhancement to suggest active demyelination. There is no evidence of acute intracranial hemorrhage or acute infarct. There is no mass effect or midline shift. The ventricles are normal in size and configuration. The basal cisterns are patent. There is no intra-axial or extra-axial fluid collection. The wynn-white matter differentiation is preserved. There is no abnormal enhancement in the brain parenchyma or meninges. The midline structures, including the corpus callosum, pituitary and pineal glands are normal. The craniocervical junction is normal. The superior sagittal sinus demonstrates normal flow voids. The visualized portions of the scalp and calvarium are unremarkable. The posterior fossa is normal. The visualized portions of globes, orbits, paranasal sinuses and mastoids are normal. There are normal flow voids in the visualized intracranial arteries. Procedure Note Dana Gimenez MD - 11/29/2017 EXAMINATION: Brain MRI without and with contrast. HISTORY: Multiple sclerosis. TECHNIQUE: MRI imaging of the brain and brainstem was performed withoutand with 10 ML Gadavist intravenous contrast according to a standardprotocol. COMPARISON: None available FINDINGS: There are approximately 20 supratentorial FLAIR hyperintense lesions inthe periventricular and subcortical white matter and along theundersurface of the corpus callosum, as well as 2 infratentorial lesionsin the left middle cerebellar peduncle and the right cerebellar hemisphere, consistent with patient's history ofmultiple sclerosis. A few lesions demonstrate T1 hypointensity, indicatingmyelin vacuolization. There is no diffusion restriction or enhancement tosuggest active demyelination. There is no evidence of acute intracranial hemorrhage or acute infarct.There is no mass effect or midline shift. The ventricles are normal insize and configuration. The basal cisterns are patent. There is nointra-axial or extra-axial fluid collection. The wynn-white matter differentiation is preserved. There is no abnormalenhancement in the brain parenchyma or meninges. The midline structures, including the corpus callosum, pituitary andpineal glands are normal. The craniocervical junction is normal. Thesuperior sagittal sinus demonstrates normal flow voids. The visualized portions of the scalp and calvarium are unremarkable. Theposterior fossa is normal. The visualized portions of globes, orbits, paranasal sinuses and mastoidsare normal. There are normal flow voids in the visualized intracranialarteries. IMPRESSION IMPRESSION: 1. Up to 20 supratentorial and 2 infratentorial FLAIR hyperintense lesionsas described above, consistent with patient known diagnosis of multiplesclerosis. No diffusion restriction or enhancement to suggest activedemyelination. This report was electronically signed by DANA GIMENEZ M.D. on 12/23/201410:06 AM . Devyn Matamoros MD MR ORDERABLES * CREATININE BLOOD - POCT (IP) [facility] (12/23/2014) Creatinine POCT 0.79 0.3 - 1.3 mg/dL [facility] eGFR POCT 60 60 ml/min [facility] 12/23/2014 Cira Flowers MD LAB - POINT OF CARE ORDERABLES [facility] * VITAMIN D 1,25 DIHYDROXY (12/20/2014 6:33 AM CDT) Calcitriol (1,25 di-OH Vit D) 31.9 19.9 - 79.3 pg/mL [facility] ([place] Blood specimen (specimen) BLOOD SPECIMEN / Unknown 12/20/2014 6:33 AM CDT 12/20/2014 7:39 AM CDT Narrative [facility] - 12/22/2014 5:14 PM CDT Performed at: ??01 - [address] ??[id number] Convention Planner: Shay Frazier MD, Phone: ??[phone] Roland Guaman MD LAB - CHEMIS TRY ORDERABLES [facility] ([place] * VITAMIN D 25-HYDROXY (12/20/2014 6:33 AM CDT) [facility] Vitamin D, 25 Hydroxy 74.2 >30.0 ng/mL [facility] Comment: The recommendations for 25-Hydroxy Vitamin D clinical decision points are as follows: ? Deficient: ? <20.0 ng/mL ? Insufficient: ??20.0 - 30.0 ng/mL ? Sufficient: ?>30.0 ng/mL If the 25-Hydroxy Vitamin D results are inconsitent with clinical evidence, it is recommended that follow-up testing using a method such as LC/MS/MS be performed to confirm the result. ? Blood specimen (specimen) BLOOD SPECIMEN / Unknown 12/20/2014 6:33 AM CDT 12/20/2014 7:39 AM CDT Roland Guaman MD LAB - CHEMIS TRY ORDERABLES [address] [phone] * XR CHEST 2VW INSPIR EXPIRATION (12/17/2014 8:11 PM CDT) Anatomical Region Laterality Modality Chest Other Impressions 12/18/2014 9:42 AM CDT Impression: Small biapical pneumothoraces. This report was electronically signed by Unique Youssef MD ??on 12/18/2014 9:42 AM . Narrative 12/18/2014 9:42 AM CDT Chest, 2 views, inspiration expiration Date: 12/17/14 at 0809 hrs. Indication: Pneumothorax. Findings: Small bilateral apical pneumothoraces do not change between inspiration and expiration. Pneumothorax measures less than 1 cm in depth. There is no pleural fluid collection. The lungs are clear. Heart size is normal. Procedure Note Unique Youssef MD - 11/29/2017 Chest, 2 views, inspiration expiration Date: 12/17/14 at 0809 hrs. Indication: Pneumothorax. Findings: Small bilateral apical pneumothoraces do not change between inspirationand expiration. Pneumothorax measures less than 1 cm in depth. There is nopleural fluid collection. The lungs are clear. Heart size is normal. IMPRESSION Impression: Small biapical pneumothoraces. This report was electronically signed by Unique Youssef MD on 12/18/20149:42 AM . Roland Guaman MD DIAGNOSTIC I MAGING ORDERABLES
--- OUTSIDE RECORDS SUMMARY | 2024-09-29 23:34 | XMS_ITS | Clinical Summary ---
Author Organization [facility] [employer] Address [address] [place] [address] Care Team Providers Care Fruit Buyer Name Role Phone Unavailable Primary Care Provider Unavailabl e Source Comments [facility] [employer],non-owned Affiliates and Associated Physician Practices is amultiple site organization consisting of ambulatory clinics and hospital sitesin [place], [place], [place] and [place]. This disclosure is being madepursuant to the Care Everywhere program and may not contain all information available regarding this patient. Last updated 18.[facility] [employer] Allergies No known active allergies Medications * [...] Active Active Problems No known active problems Family History Medical History Relation Name Comments Drug Abuse Brother 1 Alcohol abuse Father Asthma Father Migraine Father Seizures Father Diabetes Maternal Grandfather Hypercholesterolemia Maternal Grandfather Arthritis - Osteo Maternal Grandmother Alcohol abuse Paternal Grandfather Cancer Paternal Grandmother Cancer Paternal Uncle Depression Sister Drug Abuse Sister Migraine Sister Relation Name Status Comments Brother 1 Alive Brother 2 Alive Father Alive Maternal Grandfather Maternal Grandmother Alive Mother Alive Paternal Grandfather Paternal Grandmother Alive Paternal Uncle Sister Alive Social History Tobacco Use Types Packs/Day Years [...] (227 lb 4.7 oz) 10/01/2016 1:00 PM WOOD CUT ENGRAVER Height 190.5 cm (6' 3 ) 12/14/2016 5:00 PM CDT Body Mass Index 30.12 10/01/2016 1:00 PM WOOD CUT ENGRAVER Plan of Treatment Health Maintenance Due Date Last Done Comments MEDICARE AWV ? 12 MONTHS 1984 HIV SCREENING 12/27/1999 HEPATITIS C SCREENING 12/22/2002 DTAP/TDAP/TD VACCINES (1 - Tdap) 12/27/2003 HEPATITIS B VACCINE (1 of 3 - 19+ 3-dose series) 12/27/2003 PNEUMOCOCCAL VACCINE (1 of 2 - PCV) 12/27/2003 COVID-19 VACCINE (1 - 2023-2 5 season) 2024 INFLUENZA VACCINE (#1) 2024 DEPRESSION SCREENING 09/01/2024 ZOSTER VACCINE (1 of 2) 2034 HIB VACCINE Aged Out No longer eligi ble based on patient's age to complete this topic HPV VACCINE Aged Out No longer eligi ble based on patient's age to complete this topic MENINGOCOCCAL (Group B) VACCINE Aged Out No longer eligible based on patient's age to complete this topic MENINGOCOCCAL VACCINE Aged Out No chloe biju eligible based on patient's age to complete this topic Advance Directives * Full Code (Latest Code Status on File) Date Activated Date Inactivated Comments 10/01/2016 12:07 AM 10/04/2016 12:47 PM
--- OUTSIDE RECORDS SUMMARY | 2024-09-29 23:34 | XMS_ITS | Referral Summary ---
Author Organization [facility] Address [address] [place] [address] Care Team Providers Care Drawer Upfitter Name Role Phone Unknown, Notinfile Primary Care Provider Unavail able Encounters Date Type Department Care Team Description 09/24/2024 6:46 PM BAREBACK RIDER - 09/24/2024 7:59 PM BAREBACK RIDER Emergency [facility] Emergency Department [address] [phone] Left wrist pain (Primary Dx) Discharge Disposition: Discharge to home or self care 08/16/2024 8:30 AM BAREBACK RIDER Office Visit [facility] [place] [place] [facility] [address] [place] [address] Graham Villaseñor MD Relapsing remitting multiple sclerosis (HCC) (Primary Dx); 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); Chronic bilateral low back pain without sciatica; Vitamin D deficiency from Last 3 Months Allergies Active Allergy Reactions Criticality Noted Date [...] check Assessment & Plan (08/29/2023 1:36 PM BAREBACK RIDER): Avoid ear cleaning techniques Avoid water to [...] of right knee 12/28/2018 Multiple sclerosis 10/13/2014 4 Overview (12/05/2016): Multiple sclerosis Social History Tobacco Use Types Packs/Day Years [...] on file Legal Sex Male 7:32 PM BAREBACK RIDER Gender Identity Not on file Sexual Orientation Not on file Last Filed Vital Signs Vital Sign Reading Time Taken Comments Blood Pressure 145/96 09/24/2024 6:44 PM BAREBACK RIDER Pulse 93 09/24/2024 6:44 PM BAREBACK RIDER Temperature 36.9 ??C (98.5 ??F) 09/24/2024 6:44 PM CS T Respiratory Rate 18 09/24/2024 6:44 PM BAREBACK RIDER Oxygen Saturation 97% 09/24/2024 6:44 PM BAREBACK RIDER Inhaled Oxygen Concentration - - Weight 102.5 kg (226 lb) 09/24/2024 6:44 PM BAREBACK RIDER Height 190.5 cm (6' 3 ) 09/24/2024 6:44 PM BAREBACK RIDER Body Mass Index 28.25 09/24/2024 6:44 PM BAREBACK RIDER Plan of Treatment Not on file Medical Devices Implanted Type Area Handle Assembler Device Identifier Shelf Expiration Date Model / Serial / Lot [employer] 1.32mm 4.8mm Modify Ear T Tube Ventilation Ultrasil Sterile Blue [id number] - [id number] Implanted:Qty: 1 on 08/19/2023 by Yenny Marquez DO at [facility] Right: Ear [employer] 01/08/2033 [id number] / / [id number] Insurance [facility] MEDICARE [facility] Address: [address] [address] [place] [address] MEDICARE [facility] Address: [address] [address] [place] [address] IDPA Care Teams Drawer Upfitter Relationship Specialty Start Date End Date Unknown, Notinfile PCP - General 08/18/17
[2024-09-29 23:46] VITALS: BP 123/62; PULSE 62; RESP 23; O2SAT 100
[2024-09-29] MEDS: levETIRAcetam 1500MG/NACL100ML 1,500 MG/100 ML BAG 400 MG IVPB (23:52)
[2024-09-30 00:04] VITALS: BP 128/76; PULSE 63; RESP 12; O2SAT 98
[2024-09-30 00:16] VITALS: BP 116/73; PULSE 64; RESP 20; O2SAT 100
[2024-09-30 00:18] LABS: Amphetamine Screen Urine Negative (Negative); Barbiturate Screen Urine Negative (Negative); Benzodiazepines Screen Urine Negative (Negative); Cannabinoid Screen Urine Positive (Negative); Cocaine Screen Urine Negative (Negative); Methadone Screen Urine Negative (Negative); Opiate Screen Urine Negative (Negative); Phencyclidine Screen Urine Negative (Negative)
[2024-09-30 00:31] VITALS: BP 112/72; PULSE 70; RESP 11; O2SAT 97
[2024-09-30 00:46] VITALS: BP 101/67; PULSE 61; RESP 15; O2SAT 95
[2024-09-30] MEDS: HYDROcodone/acetaminophen (*CRX) 5-325 MG TABLET 1 TAB PO (01:19)
--- NOTE | 2024-10-07 15:45 | PC.NURSE ---
LATE ENTRY This note is being entered to document information to the patient's record. The following information was omitted on 09/30/24], by [Michelle Castellanos RN]. Ulnar gutter splint applied to right hand/wrist.
== END 2024-09-30 01:36 | disposition home or self-care (01) ==
PROVIDERS: Emergency Medicine; Emergency Provider Physician Assistant
DX: G40.909 Epilepsy, unspecified, not intractable, without status epilepticus (principal); S62.316A Displaced fracture of base of fifth metacarpal bone, right hand, initial encounter for closed fracture; S62.394A Other fracture of fourth metacarpal bone, right hand, initial encounter for closed fracture; G35 Multiple sclerosis; F31.9 Bipolar disorder, unspecified; Z79.899 Other long term (current) drug therapy; X58.XXXA Exposure to other specified factors, initial encounter
CPT/HCPCS: 29125; 36415; 70450; 73120; 80053; 80307; 81003; 85025; 85610; 85730; 93005; 96374; 99284; A9270; J1953